=== PATIENT | male | born 1955 | race Caucasian/White ===

== ENCOUNTER 2016-08-20 18:01 | Emergency (ER) | payer OTHER ==
[~2016-08-20] VITALS: Ht 185.4 cm; Wt 90.7 kg
[~2016-08-20 18:01] MED LIST: AMLO10TA2 PO; CITA20TA5 PO; CYCL10TA2 PO; FLUO20CA8 PO; FLUO40CA9 PO; GABA-586 PO; HYDR25TA PO; IBUP-1027 PO; LISI10TA2 PO; MELA3TAB PO; NAPR500T3 PO; OMEP20CA9 PO; TRAM50TA PO; TRAZ150T55 PO
[2016-08-20 19:41] LABS: BASO % 1 % (0-3); EOS % 0 % (0-3); HEMOGLOBIN 12.6 g/dL (13.0-17.5); LYMPH # 2.2 x10^3/uL (1.0-4.8); LYMPH % 32 % (24-48); MEAN CORPUSCULAR HEMOGLOBIN 27 pg (25-35); MEAN CORPUSCULAR HGB CONC 32 g/dL (31-37); MEAN CORPUSCULAR VOLUME 83 fL (79-100); MONO % 9 % (0-9); NEUT % 58 % (31-73); PLATELET COUNT 276 x10^3/uL (140-400); RED CELL DISTRIBUTION WIDTH 15.6 % (11.5-14.5); WHITE BLOOD COUNT 6.8 x10^3/uL (4.0-11.0)
[2016-08-20 19:59] LABS: ALBUMIN 3.9 g/dL (3.4-5.0); ALBUMIN/GLOBULIN RATIO 1.1 (1.0-1.7); CALCIUM 8.7 mg/dL (8.5-10.1); CREATININE 1.1 mg/dL (0.7-1.3); GFR 68.3; TOTAL BILIRUBIN 0.3 mg/dL (0.2-1.0); TOTAL PROTEIN 7.6 g/dL (6.4-8.2)
[2016-08-20 20:28] LABS: BILIRUBIN,URINE NEGATIVE (NEG); GLUCOSE,URINE NEGATIVE (NEG); NITRITE,URINE NEGATIVE (NEG); UROBILINOGEN,URINE 0.2 mg/dL (0.2 mg/dL)
[2016-08-20 20:35] LABS: BARBITURATES NEG (NEG); BENZODIAZEPINES NEG (NEG); CANNABINOIDS NEG (NEG); COCAINE POS (NEG); METHADONE NEG (NEG); OPIATES NEG (NEG); PHENCYCLIDINE NEG (NEG)
[2016-08-20 20:36] LABS: BACTERIA,URINE 0 /HPF (0-FEW); PROTEIN,URINE 30 mg/dL (NEG-TRACE); RBC,URINE OCC /HPF (0-2); SQUAMOUS EPITHELIAL CELL,UR OCC /LPF; WBC,URINE OCC /HPF (0-4)
[2016-08-20 20:37] LABS: ETHANOL, URINE NEG (NEG)
[2016-08-20] MEDS ORDERED: POTASSIUM CHLORIDE 20 MEQ TABLET.ER. PO ONE (21:00)
[2016-08-20] MEDS ORDERED: POTASSIUM CHLORIDE 20 MEQ/15 ML ORAL LIQUID. PO ONE (21:00)
[2016-08-20 21:54] VITALS: BP 135/83
[2016-08-20] MEDS ORDERED: POTA20TA4 PO (22:22)
--- NOTE | 2016-08-21 00:48 | ED.ADGEN ---
Past Medical History Past Medical History: Bipolar, COPD, Depression, Hypertension Additional Past Medical Histor: BOARDERLINE PERSONALTIY DISORDER Past Surgical History: No Surgical History Alcohol Use: Occasionally Drug Use: Cocaine Adult General Chief Complaint Chief Complaint: PSYCH EVALUATION HPI HPI Patient is a 60 year old man, with history of bipolar disorder, depression, hypertension, COPD, continued tobacco abuse, who presents to the emergency department with a complaint of suicidal ideation. Patient states that he "would draw a warm bath, and get in the water", a plan to drown himself. He states that in the 80s attempted to slice his wrist using broken glass. He denies taking any medications or any other self injures behaviors prior to coming to the ED today. He states he been under a lot of stress lately, although he does not identify any specific inciting factors. Denies any auditory or visual hallucinations. He states he has been compliant with his medications. He is agreeable to an evaluation the ED, and discussion with the psychiatric evaluation team. He states he does have a mental health nurse case management and follows at the [facility]. Denies any chest pain, shortness breath, nausea, vomiting, any weakness emesis tingling or other concerning symptoms, no injuries, no exposures. Review of Systems Review of Systems Constitutional: Denies fever or chills. [] Eyes: Denies change in visual acuity. [] HENT: Denies nasal congestion or sore throat. [] Respiratory: Denies cough or shortness of breath. [] Cardiovascular: Denies chest pain or edema. [] GI: Denies abdominal pain, nausea, vomiting, bloody stools or diarrhea. [] : Denies dysuria. [] Musculoskeletal: Denies back pain or joint pain. [] Integument: Denies rash. [] Neurologic: Denies headache, focal weakness or sensory changes. [] Endocrine: Denies polyuria or polydipsia. [] Lymphatic: Denies swollen glands. [] Psychiatric: Depression and suicidal ideation. Current Medications Current Medications Current Medications Medications (Trade) Dose Ordered Sig/David Start Time Stop Time Status Last Admin Dose Admin Potassium Chloride (KCl Oral Soln) 40 meq 1X ONCE 08/20/16 21:00 08/20/16 21:01 DC 08/20/16 21:39 40 MEQ Potassium Chloride (Klor-Con) 40 meq 1X ONCE 08/20/16 21:00 1/3/17 21:01 DC 08/20/16 21:55 40 MEQ Allergies Allergies Allergies Coded Allergies Type Severity Reaction Last Updated Verified Penicillins Allergy Intermediate 08/17/16 Yes Physical Exam Physical Exam Constitutional: Well developed, well nourished, no acute distress, non-toxic appearance. [] HENT: Normocephalic, atraumatic, bilateral external ears normal, oropharynx moist, no oral exudates, nose normal. [] Eyes: PERRLA, EOMI, conjunctiva normal, no discharge. [] Neck: Normal range of motion, no tenderness, supple, no stridor. [] Cardiovascular:Heart rate regular rhythm, no murmur , S1, S2, rubs or gallops. [ ] Lungs & Thorax: Patient with coarse breath sounds and diminished breath sounds noted bilaterally, chronic changes, no significant wheezing, rhonchi or rales appreciated. No chest tenderness or crepitus. Abdomen: Bowel sounds normal, soft, no tenderness, no masses, no pulsatile masses. [] Skin: Warm, dry, no erythema, no rash. [] Back: No tenderness, no CVA tenderness. [] Extremities: No tenderness, no cyanosis, no clubbing, ROM intact, no edema. Negative Homans sign. [] Neurologic: Alert and oriented X 3, normal motor function, normal sensory function, no focal deficits noted. [] Psychologic: Affect normal, judgement normal, mood normal. [] Current Patient Data Vital Signs Vital Signs Date Time Temp Pulse Resp B/P Pulse Ox O2 Delivery O2 Flow Rate FiO2 08/20/16 21:54 84 20 135/83 92 Room Air 08/20/16 19:05 97.9 97.9 Lab Values Laboratory Tests Test 08/20/16 19:30 08/20/16 19:55 White Blood Count 6.8x10^3/uL (4.0-11.0) Red Blood Count 4.70x10^6/uL (4.30-5.70) Hemoglobin 12.6g/dL (13.0-17.5) L Hematocrit 39.0% (39.0-53.0) Mean Corpuscular Volume 83fL (79-100) Mean Corpuscular Hemoglobin 27pg (25-35) Mean Corpuscular Hemoglobin Concent 32g/dL (31-37) Red Cell Distribution Width 15.6% (11.5-14.5) H Platelet Count 276x10^3/uL (140-400) Neutrophils (%) (Auto) 58% (31-73) Lymphocytes (%) (Auto) 32% (24-48) Monocytes (%) (Auto) 9% (0-9) Eosinophils (%) (Auto) 0% (0-3) Basophils (%) (Auto) 1% (0-3) Neutrophils # (Auto) 3.9x10^3uL (1.8-7.7) Lymphocytes # (Auto) 2.2x10^3/uL (1.0-4.8) Monocytes # (Auto) 0.6x10^3/uL (0.0-1.1) Eosinophils # (Auto) 0.0x10^3/uL (0.0-0.7) Basophils # (Auto) 0.0x10^3/uL (0.0-0.2) Sodium Level 145mmol/L (136-145) Potassium Level 3.0mmol/L (3.5-5.1) L Chloride Level 105mmol/L (98-107) Carbon Dioxide Level 27mmol/L (21-32) Anion Gap 13 (6-14) Blood Urea Nitrogen 17mg/dL (8-26) Creatinine 1.1mg/dL (0.7-1.3) Estimated GFR (Cockcroft-Gault) 68.3 BUN/Creatinine Ratio 15 (6-20) Glucose Level 103mg/dL (70-99) H Calcium Level 8.7mg/dL (8.5-10.1) Total Bilirubin 0.3mg/dL (0.2-1.0) Aspartate Amino Transferase (AST) 25U/L (15-37) Alanine Aminotransferase (ALT) 31U/L (16-63) Alkaline Phosphatase 102U/L (46-116) Troponin I Quantitative 0.017ng/mL (0.000-0.055) Total Protein 7.6g/dL (6.4-8.2) Albumin 3.9g/dL (3.4-5.0) Albumin/Globulin Ratio 1.1 (1.0-1.7) Salicylates Level < 2.8mg/dL (2.8-20.0) L Salicylate Last Dose Date Salicylate Last Dose Time Acetaminophen Level < 2mcg/ml (10-30) L Acetaminophen Last Dose Date Acetaminophen Last Dose Time Urine Collection Type Unknown Urine Color Yellow Urine Clarity Clear Urine pH 7.0 Urine Specific Mulga 1.020 Urine Protein 30mg/dL (NEG-TRACE) Urine Glucose (UA) Negativemg/dL (NEG) Urine Ketones (Stick) Negativemg/dL (NEG) Urine Blood Negative (NEG) Urine Nitrite Negative (NEG) Urine Bilirubin Negative (NEG) Urine Urobilinogen Dipstick 0.2mg/dL (0.2 mg/dL) Urine Leukocyte Esterase Negative (NEG) Urine RBC Occ/HPF (0-2) Urine WBC Occ/HPF (0-4) Urine Squamous Epithelial Cells Occ/LPF Urine Bacteria 0/HPF (0-FEW) Urine Mucus Slight/LPF Urine Opiates Screen Neg (NEG) Urine Methadone Screen Neg (NEG) Urine Barbiturates Neg (NEG) Urine Phencyclidine Screen Neg (NEG) Urine Amphetamine/Methamphetamine Neg (NEG) Urine Benzodiazepines Screen Neg (NEG) Urine Cocaine Screen Pos (NEG) Urine Cannabinoids Screen Neg (NEG) Urine Ethyl Alcohol Neg (NEG) Laboratory Tests 08/20/16 19:30 Laboratory Tests 08/20/16 19:30 EKG EKG EC: Sinus rhythm, heart rate 81 beats/minute, QTC of 477, WV of 162, QRS of 106, upright axis, no ST elevations or depressions, no evidence of acute ST abnormalities. As interpreted by me. Radiology/Procedures Radiology/Procedures Not indicated. [] Course & Med Decision Making Course & Med Decision Making Pertinent Labs and Imaging studies reviewed. (See chart for details) Patient with no evidence of self injury behaviors, is awake alert and oriented in the ED, with persistent complaint of depression, and desire to drowned himself. Patient's laboratory studies reveal a hypokalemia with a potassium of 3.0, patient received oral repletion in the ED, which he tolerated without issue. Patient does take hydrochlorothiazide for blood pressure control, blood pressures are 140s over 80s in the ED and he is resting comfortably with a heart rate in the 70s to 80s. Oxygen saturation is 94% on room air, respiratory rate is 18-22 and unlabored. Patient's UDS was positive for cocaine, patient admits to using cocaine one day ago, states that he had not use in the past month. Patient's laboratory studies not reveal any other evidence of concerning findings. Patient is well-known to actually, PAT medical director/head team physician who evaluated the patient in the ED, after psychiatric evaluation performed, she recommends transfer to [facility] for observation. Patient is agreeable with this plan. Patient was given instructions regarding potassium diet, and was given a three-day supply of potassium repletion, instructed to follow-up with primary care provider for repeat potassium testing, he'll be able to obtain all the medications at the [facility] center, including his blood pressure medications. Patient transferred to [facility] via BLS ambulance without issue. Dragon Disclaimer Dragon Disclaimer This electronic medical record was generated, in whole or in part, using a voice recognition dictation system. Departure Impression: Primary Impression: Hypokalemia Additional Impressions: Suicidal ideation Cocaine abuse Disposition: 65 XFER TO PSYCH HOSP/UNIT Condition: IMPROVED Scripts Potassium Chloride (Klor-Con M20)20 Meq Tab.er.prt20 Meq PO DAILY #6 TAB.SR Prov:LYDIA RAMIREZ DO 08/20/16 Problem Qualifiers LYDIA RAMIREZ DO Aug 21, 2016 00:48
--- NOTE | 2016-08-21 06:49 | EKG ---
[facility] [address] [place] [address] Test Date: 2016-08-20 Test Time: 19:31:48 Pat Name: SURAJ MOSCOSO Department: Room: Gender: Ict Developer: : 1955 Requested By: LYDIA RAMIREZ Order Number: [id number] Reading MD: Measurements Intervals Dexter Rate: 81 P: 38 VT: 162 QRS: 23 QRSD: 106 T: 58 QT: 410 QTc: 477 Interpretive Statements SINUS RHYTHM PROLONGED QT NO SPECIFIC ECG ABNORMALITIES RI6.01 No previous ECG available for comparison
== END 2016-08-20 22:20 | disposition short-term general hospital (02) ==
LOC: ER 18:01
DX: E87.6 Hypokalemia (principal); R45.851 Suicidal ideations; F14.10 Cocaine abuse, uncomplicated; F31.9 Bipolar disorder, unspecified; I10 Essential (primary) hypertension; J44.9 Chronic obstructive pulmonary disease, unspecified; F17.200 Nicotine dependence, unspecified, uncomplicated; Z88.0 Allergy status to penicillin
CPT/HCPCS: 36415; 80053; 81001; 84484; 85027; 93005; 99285; G0481; G6038; 80196

== ENCOUNTER 2016-10-10 06:24 | Emergency (ER) | payer OTHER ==
[~2016-10-10] VITALS: Ht 185.4 cm; Wt 90.7 kg
[~2016-10-10 06:24] MED LIST changes: +POTA20TA4 PO
[2016-10-10 06:44] VITALS: BP 135/91
[2016-10-10] MEDS ORDERED: ACETAMINOPHEN 500 MG TABLET PO ONE (07:00)
--- NOTE | 2016-10-10 07:11 | ED.ADGEN ---
Past Medical History Past Medical History: Bipolar, COPD, Depression, Hypertension Additional Past Medical Histor: BOARDERLINE PERSONALTIY DISORDER Past Surgical History: No Surgical History Alcohol Use: Occasionally Drug Use: None, Cocaine Social History Narrative: no drugs since first of year Adult General Chief Complaint Chief Complaint: MECHANICAL FALL HPI HPI Patient is a 60 year old man, history of bipolar disorder, depression, alcohol abuse, who states that he slipped on the stairs after taking his sleeping pill last night, states that he struck his knee, landing his hand, denies striking his head or neck, denies a loss of consciousness. Eyes preceding symptoms, no chest pain, shortness breath, nausea or vomiting. At the time the patient applied a dressing to his knee where there is an abrasion, and went to bed. He presents because he is experiencing increasing swelling and pain in his right hand, with some pain in his knee, although he is ambulating without difficulty upon entering the emergency department. Denies any weakness numbness or tingling. Tetanus status is up-to-date. Denies any drugs, states he was raking some alcohol last night, he does drink alcohol daily, declined to give amount. Review of Systems Review of Systems Constitutional: Denies fever or chills. [] Eyes: Denies change in visual acuity. [] HENT: Denies nasal congestion or sore throat. [] Respiratory: Denies cough or shortness of breath. [] Cardiovascular: Denies chest pain or edema. [] GI: Denies abdominal pain, nausea, vomiting, bloody stools or diarrhea. [] : Denies dysuria. [] Musculoskeletal: Right knee pain, hand and wrist pain. Integument: Denies rash. [] Neurologic: Denies headache, focal weakness or sensory changes. [] Endocrine: Denies polyuria or polydipsia. [] Lymphatic: Denies swollen glands. [] Psychiatric: Denies depression or anxiety. [] Current Medications Current Medications Current Medications Medications (Trade) Dose Ordered Sig/David Start Time Stop Time Status Last Admin Dose Admin Acetaminophen (Tylenol) 1,000 mg 1X ONCE 10/10/16 07:00 10/10/16 07:01 DC 10/10/16 07:22 1,000 MG Allergies Allergies Allergies Coded Allergies Type Severity Reaction Last Updated Verified Penicillins Allergy Intermediate 08/17/16 Yes Physical Exam Physical Exam Constitutional: Well developed, well nourished, no acute distress, non-toxic appearance. [] HENT: Normocephalic, atraumatic, bilateral external ears normal, oropharynx moist, no oral exudates, nose normal. [] Eyes: PERRLA, EOMI, conjunctiva normal, no discharge. [] Neck: Normal range of motion, no tenderness, supple, no stridor. [] Cardiovascular:Heart rate regular rhythm, no murmur, S1, S2, no rubs or gallops. [] Lungs & Thorax: Diminished breath sounds at bases bilaterally, no wheezing, rhonchi, rales. No chest wall tenderness or crepitus. [] Abdomen: Bowel sounds normal, soft, no tenderness, no masses, no pulsatile masses. [] Skin: Warm, dry, no erythema, no rash. [] Back: No tenderness, no CVA tenderness. [] Extremities: Patient with mild swelling noted both on the palmar and dorsal aspect of his hand, with ecchymosis noted in the middle of his on, states he is unable to fully close the hand secondary to pain, tenderness to palpation throughout the palm and the PIP joints, no cyanosis, no clubbing, full range of motion all extremities except for the right hand as stated, patient with abrasion noted to the lateral aspect of his right knee, full flexion and extension, mild tenderness palpation diffusely across the knee, no effusion, no crepitus, no deformity identified, no edema. [] Neurologic: Alert and oriented X 3, normal motor function, normal sensory function, no focal deficits noted. [] Psychologic: Affect normal, judgement normal, mood normal. [] Current Patient Data Vital Signs Vital Signs Date Time Temp Pulse Resp B/P Pulse Ox O2 Delivery O2 Flow Rate FiO2 10/10/16 06:44 98.1 97 16 135/91 99 Room Air 98.1 EKG EKG ECG: Sinus rhythm, heart rate 90 bpm, sinus rhythm, no ectopy. As interpreted by me. Radiology/Procedures Radiology/Procedures [] [facility] [address] [place] [address] IMAGING REPORT Signed PATIENT: SURAJ MOSCOOS ACCOUNT: [id number] : 1955 LOCATION: ER AGE: 60 SEX: M EXAM [id number] STATUS: REG ER ORD. PHYSICIAN: LYDIA RAMIREZ DO REASON: contusion/fall PROCEDURE: HAND RIGHT 3V; WRIST 3V RIGHT EXAM: 1. Right hand 3 views. 2. Right wrist 3 views. HISTORY: Fall with right hand and wrist pain. COMPARISON: None. FINDINGS: No fractures are appreciated at the right wrist. There is a degenerative cyst within the distal scaphoid. Joint spaces and alignment are maintained. There is a chronic healed fracture of the right fifth metacarpal. No acute fractures are seen in the hand. There is mild distal interphalangeal osteoarthritis along the second through fifth rays. Alignment is maintained. IMPRESSION: 1. No acute fracture. DICTATED and SIGNED BY: LACIE PETERS MD DATE: 10/10/16721 CC: LINA ARCHULETA MD; LYDIA RAMIREZ DO ~ Course & Med Decision Making Course & Med Decision Making Pertinent Labs and Imaging studies reviewed. (See chart for details) Patient with abrasion noted on the lateral aspect of the right knee, but full range of motion in the knee with no bony point tenderness or significant swelling. Patient repetitively denied striking his head, any neurologic complaints, or indications for imaging of the head or neck. States this occurred more than 8-10 hours ago, last night shortly after taking his sleeping pill last night. Due to initial concerns, x-ray ordered, patient then declined x -ray when x-ray it help desk technician came to taken to x-ray. Patient's wrist it as a full range of motion with complaints of pain with motion, noted to have swelling in the hand itself with tenderness, and bruising in the palmar aspect. No bony deformities or bony point tenderness identified, x-ray does not reveal any evidence of fracture, patient has no pain with axial loading. I did discuss findings of the patient, he is received Tylenol in the ED, and has increased improve range of motion with elevation of his hand in the emergency department, he has seen Dr. Davis from orthopedics previously. Cuco wrap applied for patient's comfort, we discussed concerning symptoms that prompt return or follow -up with orthopedics, patient discharged home in stable condition with prescription for naproxen, and precautions as stated. Dragon Disclaimer Dragon Disclaimer This electronic medical record was generated, in whole or in part, using a voice recognition dictation system. Departure Impression: Primary Impression: Hand contusion Disposition: 01 HOME, SELF-CARE Condition: IMPROVED Scripts Naproxen 250 Mg [id number] Mg PO BID PRN PAIN #10 Prov:LYDIA RAMIREZ DO 10/10/16 Problem Qualifiers Primary Impression: Hand contusion Encounter type: initial encounter Laterality: right Qualified Code: S60.221A - Contusion of right hand, initial encounter LYDIA RAMIREZ DO Oct 10, 2016 07:11
--- NOTE | 2016-10-10 07:26 | RAD ---
EXAM: 1. Right hand 3 views. 2. Right wrist 3 views. HISTORY: Fall with right hand and wrist pain. COMPARISON: None. FINDINGS: No fractures are appreciated at the right wrist. There is a degenerative cyst within the distal scaphoid. Joint spaces and alignment are maintained. There is a chronic healed fracture of the right fifth metacarpal. No acute fractures are seen in the hand. There is mild distal interphalangeal osteoarthritis along the second through fifth rays. Alignment is maintained. IMPRESSION: 1. No acute fracture.
[2016-10-10] MEDS ORDERED: NAPR250T2 PO (08:01)
== END 2016-10-10 08:03 | disposition home or self-care (01) ==
LOC: ER 06:24
DX: S60.221A Contusion of right hand, initial encounter (principal); S80.211A Abrasion, right knee, initial encounter; F14.10 Cocaine abuse, uncomplicated; F31.9 Bipolar disorder, unspecified; I10 Essential (primary) hypertension; J44.9 Chronic obstructive pulmonary disease, unspecified; Z88.0 Allergy status to penicillin; W10.8XXA Fall (on) (from) other stairs and steps, initial encounter; Y93.89 Activity, other specified; Y92.89 Other specified places as the place of occurrence of the external cause; Y99.8 Other external cause status
CPT/HCPCS: 73110; 73130; 99284-25

== ENCOUNTER 2016-10-28 15:40 | Emergency (ER) | payer OTHER ==
[~2016-10-28] VITALS: Ht 185.4 cm; Wt 97.5 kg
[~2016-10-28 15:40] MED LIST changes: +NAPR250T2 PO
[2016-10-28 16:06] VITALS: BP 129/80
--- NOTE | 2016-10-28 16:50 | PHYS DOC ---
Past Medical History Past Medical History: Bipolar, COPD, Depression, Hypertension Additional Past Medical Histor: BOARDERLINE PERSONALTIY DISORDER Past Surgical History: No Surgical History Additional Information: 2 PACKS/WEEK Alcohol Use: Occasionally Additional Information: "I DRINK ONCE A MONTH" Drug Use: None Social History Narrative: QUIT SMOKING CRACK THE FIRST OF THE YEAR Adult General Chief Complaint Chief Complaint: HAND PROBLEM HPI HPI Patient is a 60 year old female presents emergency department stating that he is having right hand pain and discomfort. He states that he is still having swelling. Patient was seen here approximately 2 weeks ago for right hand pain after falling while intoxicated. X-rays of the hand and wrist were negative. Patient states he has a follow-up appointment with Dr. Davis tomorrow. Patient was prescribed 120 tramadol's on October 10. Patient states that he has lost his prescription. Had been placed on naproxen when he was seen here in the emergency department. Patient states he is out of the medication. Review of Systems Review of Systems Constitutional: Denies fever or chills [] Eyes: Denies change in visual acuity, redness, or eye pain [] HENT: Denies nasal congestion or sore throat [] Respiratory: Denies cough or shortness of breath [] Cardiovascular: No additional information not addressed in HPI [] GI: Denies abdominal pain, nausea, vomiting, bloody stools or diarrhea [] : Denies dysuria or hematuria [] Musculoskeletal: Denies back pain. Right hand and wrist pain with swelling Integument: Denies rash or skin lesions [] Neurologic: Denies headache, focal weakness or sensory changes [] Allergies Allergies Allergies Coded Allergies Type Severity Reaction Last Updated Verified Penicillins Allergy Intermediate 08/17/16 Yes Physical Exam Physical Exam Constitutional: Well developed, well nourished, no acute distress, non-toxic appearance. [] HENT: Normocephalic, atraumatic, bilateral external ears normal, oropharynx moist, no oral exudates, nose normal. [] Eyes: PERRLA, EOMI, conjunctiva normal, no discharge. [] Neck: Normal range of motion, no tenderness, supple, no stridor. [] Cardiovascular:Heart rate regular rhythm, no murmur [] Lungs & Thorax: Bilateral breath sounds clear to auscultation [] Skin: Warm, dry, no erythema, no rash. [] Back: No tenderness Extremities: right 3rd metacarpal tenderness, no cyanosis, no clubbing, ROM intact, no edema. Swelling noted of the hand. Patient with good sensation noted. cap refill brisk < 2 seconds. Neurologic: Alert and oriented X 3, normal motor function, normal sensory function, no focal deficits noted. [] Psychologic: Affect normal, judgement normal, mood normal. [] Current Patient Data Vital Signs Vital Signs Date Time Temp Pulse Resp B/P Pulse Ox O2 Delivery O2 Flow Rate FiO2 10/28/16 16:06 98.3 98 20 94 Room Air 98.3 EKG EKG [] Radiology/Procedures Radiology/Procedures [] Course & Med Decision Making Course & Med Decision Making Pertinent Labs and Imaging studies reviewed. (See chart for details) Patient will be placed in a splint with recommendations to keep it clean and dry. Patient left the emergency department prior to having discharge truck shins as well as having the splint. Been provided with verbal information. He did not receive his prescription for naproxen. Ice packs and elevation as much as possible. He'll be provided with the naproxen prescription. Recommended patient following up with his orthopedic as he states he has a appointment scheduled. Signs symptoms to return back to emergency department as been provided. Patient agrees with discharge instructions treatment regimens and follow-up recommendations. [] Dragon Disclaimer Dragon Disclaimer This electronic medical record was generated, in whole or in part, using a voice recognition dictation system. Departure Departure Impression: Primary Impression: Hand contusion Disposition: 01 HOME, SELF-CARE Condition: STABLE Referrals: LINA ARCHULETA MD (PCP) OLI DAVIS MD Patient Instructions: Hand Contusion, [id number] Additional Instructions: Activity as tolerated Medication as prescribed Ice packs on 20 minutes and off 20 minutes several times a day Elevation as much as possible Keep the splint in place and dry. Do not remove the splint Keep your followup appointment with Dr Davis as you state you have an appointment Return to emergency department as needed for signs and symptoms that become worse. MARIXA MARTINEZ NP Oct 28, 2016 16:50
== END 2016-10-28 17:05 | disposition home or self-care (01) ==
LOC: ER 15:40
DX: S60.221A Contusion of right hand, initial encounter (principal); J44.9 Chronic obstructive pulmonary disease, unspecified; I10 Essential (primary) hypertension; F31.9 Bipolar disorder, unspecified; F17.210 Nicotine dependence, cigarettes, uncomplicated; Z88.0 Allergy status to penicillin; W18.39XA Other fall on same level, initial encounter; Y93.89 Activity, other specified; Y92.89 Other specified places as the place of occurrence of the external cause; Y99.8 Other external cause status
CPT/HCPCS: 99281

== ENCOUNTER 2017-04-09 08:03 | Emergency (ER) | payer OTHER ==
[~2017-04-09 08:03] MED LIST changes: -MELA3TAB PO; +MELA3TAB2 PO; +TRAZ150T49 PO; -TRAZ150T55 PO
[2017-04-09 08:11] VITALS: BP 153/94
--- NOTE | 2017-04-09 08:35 | PHYS DOC ---
Past Medical History Past Medical History: Bipolar, COPD, Depression, Hypertension Additional Past Medical Histor: BOARDERLINE PERSONALTIY DISORDER Past Surgical History: No Surgical History Additional Information: 1/2 PACK A DAY Alcohol Use: Occasionally Additional Information: "I DRINK ONCE A MONTH" Drug Use: None Adult General Chief Complaint Chief Complaint: LACERATION/AVULSION HPI HPI Patient is a 61 year old male presents to the emergency department with a history of drinking alcohol last night. Patient states, "someone moved the floor on me and tripped and fell." Patient states he has a laceration to the upper left eyebrow area. Patient is unsure of last tetanus immunization. Patient denies neck pain or any further pain and discomfort. Patient is unsure if he LOC he is unsure when the incident occurred. Patient denies numbness or tingling to the lower extremities. Review of Systems Review of Systems Constitutional: Denies fever or chills [] Eyes: Denies change in visual acuity, redness, or eye pain [] HENT: Denies nasal congestion or sore throat [] Respiratory: Denies cough or shortness of breath [] Cardiovascular: No additional information not addressed in HPI [] GI: Denies abdominal pain, nausea, vomiting, bloody stools or diarrhea [] : Denies dysuria or hematuria [] Musculoskeletal: Denies back pain or joint pain [] Integument: Denies rash or skin lesions. Laceration to left eyebrow Neurologic: Denies headache, focal weakness or sensory changes [] Endocrine: Denies polyuria or polydipsia [] Current Medications Current Medications Current Medications Medications (Trade) Dose Ordered Sig/David Start Time Stop Time Status Last Admin Dose Admin Diphtheria/ Tetanus/Acell Pertussis (Boostrix) 0.5 ml ONCE ONCE 04/09/17 08:30 04/09/17 08:31 DC 04/09/17 08:49 0.5 ML Lidocaine/Sodium Bicarbonate (Buffered Lidocaine 1%) 20 ml 1X ONCE 04/09/17 08:30 04/09/17 08:31 DC 04/09/17 08:50 20 ML Allergies Allergies Allergies Coded Allergies Type Severity Reaction Last Updated Verified Penicillins Allergy Intermediate 08/17/16 Yes Physical Exam Physical Exam Constitutional: Well developed, well nourished, no acute distress, non-toxic appearance. [] HENT: Normocephalic, atraumatic, bilateral external ears normal, oropharynx moist, no oral exudates, nose normal. Bilateral TM normal Eyes: PERRLA, EOMI, conjunctiva normal, no discharge. [] Neck: Normal range of motion, no tenderness, supple, no stridor. [] Cardiovascular:Heart rate regular rhythm, no murmur [] Lungs & Thorax: Bilateral breath sounds clear to auscultation [] Skin: Warm, dry, no erythema, no rash. Patient with 2 cm laceration to the left eye brow, abrasion to the left cheek. Back: No cervical spine, thoracic spine, lumbar spine tenderness, no step-offs, no crepitus, no deformity noted. No CVA tenderness. [] Extremities: No tenderness, no cyanosis, no clubbing, ROM intact, no edema. Patient able to ambulate with no abnormality. Neurologic: Alert and oriented X 3, normal motor function, normal sensory function, no focal deficits noted. [] Psychologic: Affect normal, judgement normal, mood normal. [] Current Patient Data Vital Signs Vital Signs Date Time Temp Pulse Resp B/P (MAP) Pulse Ox O2 Delivery O2 Flow Rate FiO2 04/09/17 08:11 98.5 109 16 153/94 (113) 90 Room Air 98.5 EKG EKG [] Radiology/Procedures Radiology/Procedures [] Course & Med Decision Making Course & Med Decision Making Pertinent Labs and Imaging studies reviewed. (See chart for details) Pertinent Labs and Imaging studies reviewed. (See chart for details) Patient was provided with signs and symptoms of infection. Commended patient keep the area clean and dry. Clean the site twice a day with soap and water and apply antibiotic ointment. Patient was encouraged to use Tylenol or ibuprofen for pain and discomfort. Patient will be placed on Bactrim for the next 5 days as a preventative for infection. Patient agrees with discharge instructions treatment regimens and follow-up recommendations. Patient was encouraged to follow up as needed. Patient will be discharged home in stable condition. All questions and concerns answered at patient's bedside. CT scan negative for maxillofacial area, head and c-spine. [] Dragon Disclaimer Dragon Disclaimer This electronic medical record was generated, in whole or in part, using a voice recognition dictation system. Departure Departure Impression: Primary Impression: Alcohol abuse Additional Impression: Facial laceration Disposition: 01 HOME, SELF-CARE Condition: STABLE Referrals: LINA ARCHULETA MD (PCP) Patient Instructions: Alcohol and Drug Addiction, Finding Treatment, Facial Laceration, [id number] Additional Instructions: Your CT scans of your head neck and maxillofacial's were negative for any fractures or abnormalities. Keep your sutures clean and dry. Clean the sites twice day with soap and water and apply antibiotic ointment to the area twice a day. Medication as prescribed. Watch for signs and symptoms of infection such as redness warmth tenderness or any yellow/greenish drainage that may come from the site if this should occur follow-up to primary care physician immediately. Sutures out in the next 5-7 days. Return back to emergency prior signs symptoms of become worse. Follow-up to primary care physician in the next 5-7 days. Scripts Sulfamethoxazole/Trimethoprim (BACTRIM DS TABLET) 1 Each Tablet 1 TAB PO BID, #10 TAB Prov: MARIXA MARTINEZ APRN 04/09/17 Laceration/Wound Repair Laceration/Wound Repair : Wound Location: face Wound's Depth, Shape: superficial Wound Length (cm): 2 Wound Explored: clean Irrigated w/ Saline (ccs): 30 Anesthesia: 1% Lidocaine Volume Anesthetic (ccs): 4 Wound Debrided: minimal Wound Repaired With: sutures Suture Size/Type: 5:0 Number of Sutures: 4 Progress Site was injected with 4 ml of 1% buffered lidocaine. cleaned with betadine and irrigated with 30 ml NS, 4 interrupted sutures of 5-[address] in the area. Patient with splinter to the inner right foot area cleaned with betadine, splinter removed with needle, area clean with NS. Problem Qualifiers Additional Impression: Facial laceration Encounter type: initial encounter Qualified Codes: S01.81XA - Laceration without foreign body of other part of head, initial encounter MARIXA MARTINEZ APRN Apr 09, 2017 08:35
[2017-04-09] MEDS: DIPHTH,PERTUSS(ACELL),TET TOX 0.5 ML DISP.SYRIN. VAX IM ONE (08:49)
[2017-04-09] MEDS: LIDOCAINE 1% / SOD BICARB 8.4% 20 ML VIAL. IJ ONE (08:50)
--- NOTE | 2017-04-09 09:04 | RAD ---
CT of the head without contrast, 04/09/2017: History: Fall, injury Comparison is made to a study from 03/21/2013. There is mild cerebral atrophy. There are mild patchy lucencies in the deep white matter bilaterally compatible with chronic ischemic change. The ventricles are within normal limits in size. There is no shift of the midline structures. There is no evidence of acute intracranial hemorrhage or mass effect. IMPRESSION: 1. Mild deep white matter lucencies compatible with chronic ischemic change. 2. No acute intracranial abnormality is detected. CT of the cervical spine without contrast, 04/09/2017: Noncontrast scans were obtained with multiplanar reconstructions produced. There is disc space narrowing and marginal spurring at multiple levels in the mid and lower cervical spine. There are mild to moderate degenerative changes involving scattered facet joints, more so on the upper left. No acute fracture or dislocation is identified. The degenerative changes are causing borderline narrowing of the central spinal canal at several levels as well as mild foraminal encroachment at C6-7 and C5-6. There is mild calcific plaquing at the carotid bifurcations. IMPRESSION: 1. Moderate multilevel degenerative change. 2. No acute bony abnormality is detected. PQRS Compliance Statement: One or more of the following individualized dose reduction techniques were utilized for this examination: 1. Automated exposure control 2. Adjustment of the mA and/or kV according to patient size 3. Use of iterative reconstruction technique
--- NOTE | 2017-04-09 09:06 | RAD ---
Maxillofacial CT without IV contrast Indication: Head injury and left eye injury status post fall. Bruising to cheek and around the eye. Technique: Maxillofacial CT without IV contrast with multiplanar reformats. Comparison: None Findings: Lucency is noted through the right coronoid process of the mandible which may suggest nondisplaced fracture, age indeterminate. No surrounding edema. Also linear lucency seen through the distal aspect of the left lateral pterygoid plate. No other fractures of the facial bones or mandible. Temporomandibular joints are in normal anatomic alignment. The orbits are within normal limits. Soft tissue swelling is noted overlying left maxillary sinus and zygoma without evidence of underlying fractures. There is mild right deviation of the nasal septum. There is mild mucoperiosteal thickening of the anterior ethmoid air cells and moderate mucoperiosteal thickening of the left maxillary sinus. The sphenoid sinuses, frontal sinuses and mastoid air cells are clear. The noncontrast appearance of the nasopharynx and oropharynx is within normal limits. Impacted right lower third molar. The submandibular glands and parotid glands are within normal limits. Impression: 1. Soft tissue swelling overlying left maxilla and zygoma without underlying fractures. 2. Punctate well-corticated bony fragment adjacent to the right coronoid process of the mandible, nonspecific may represent a nondisplaced avulsion fracture, age indeterminate. No surrounding inflammatory changes to suggest acute fracture. 3. Lucency seen through the distal left lateral pterygoid plate, nonspecific may represent nondisplaced fracture. No surrounding inflammatory changes. 4. Significant left maxillary sinus disease. PQRS Compliance Statement: One or more of the following individualized dose reduction techniques were utilized for this examination: 1. Automated exposure control 2. Adjustment of the mA and/or kV according to patient size 3. Use of iterative reconstruction technique
[2017-04-09] MEDS ORDERED: SULF1TAB24 PO (09:28)
== END 2017-04-09 09:56 | disposition home or self-care (01) ==
LOC: ER 08:03
DX: S01.112A Laceration without foreign body of left eyelid and periocular area, initial encounter (principal); F10.10 Alcohol abuse, uncomplicated; I10 Essential (primary) hypertension; J44.9 Chronic obstructive pulmonary disease, unspecified; F31.9 Bipolar disorder, unspecified; F17.200 Nicotine dependence, unspecified, uncomplicated; Z88.0 Allergy status to penicillin; W03.XXXA Other fall on same level due to collision with another person, initial encounter; Y93.89 Activity, other specified; Y99.8 Other external cause status; Y92.89 Other specified places as the place of occurrence of the external cause
CPT/HCPCS: 12011; 70450; 70486; 72125; 90471; 90715; 99284-25

== ENCOUNTER 2017-04-21 21:53 | Emergency (ER) | payer OTHER ==
[~2017-04-21] VITALS: Ht 185.4 cm; Wt 97.5 kg
[~2017-04-21 21:53] MED LIST changes: +SULF1TAB24 PO
[2017-04-21 22:31] VITALS: BP 148/75
[2017-04-21] MEDS ORDERED: FLUORESCEIN OPHTH TEST STRIP. OD ONE (23:30)
[2017-04-21] MEDS ORDERED: TETRACAINE 0.5% OPHTH SOLUTION 4ML BOTTLE. OD ONE (23:30)
--- NOTE | 2017-04-22 06:08 | PHYS DOC ---
Past Medical History Past Medical History: Bipolar, COPD, Depression, Hypertension Additional Past Medical Histor: BOARDERLINE PERSONALTIY DISORDER, SHOULDER PAIN Past Surgical History: No Surgical History Alcohol Use: Occasionally Drug Use: Other Social History Narrative: CRACK Adult General Chief Complaint Chief Complaint: EYE PROBLEMS HPI HPI Patient is a 61 year old male who presents with right eye irritation and request for suture removal. Patient had sutures placed on 04/09 to left eyebrow, requesting removal. Denies fevers or chills, erythema/warmth/swelling, purulent drainage. States he was painting all day today and thinks that he got paint into his right eye. He has itching, clear drainage, pain. Did not irrigate his eyes prior to arrival. He wears glasses but not contacts. Review of Systems Review of Systems Constitutional: Denies fever Eyes: Reports eye problem Respiratory: Denies cough or shortness of breath Cardiovascular: Denies chest pain GI: Denies abdominal pain, nausea, vomiting Musculoskeletal: Denies back pain or joint pain Integument: Requests suture removal Neurologic: Denies headache Current Medications Current Medications Current Medications Medications (Trade) Dose Ordered Sig/David Start Time Stop Time Status Last Admin Dose Admin Fluorescein Sodium (Ful-Radha) 1 strip 1X ONCE 04/21/17 23:30 04/21/17 23:31 DC Tetracaine HCl (Tetracaine) 1 drop 1X ONCE 04/21/17 23:30 04/21/17 23:31 DC Allergies Allergies Allergies Coded Allergies Type Severity Reaction Last Updated Verified Penicillins Allergy Intermediate 08/17/16 Yes Physical Exam Physical Exam Constitutional: Well developed, well nourished, no acute distress, non-toxic appearance. HENT: Normocephalic, atraumatic, bilateral external ears normal, oropharynx moist, nose normal. intact sutures over the left eyebrow, wound appears well healed without erythema/warmth/swelling, no purulent drainage. Eyes: PERRLA, EOMI, right conjunctival injection. Cardiovascular: no edema. Lungs & Thorax: no respiratory distress. Abdomen: nondistended. Skin: Warm, dry, no erythema, no rash. Extremities: no deformity Neurologic: Alert and oriented X 3 Current Patient Data Vital Signs Vital Signs Date Time Temp Pulse Resp B/P (MAP) Pulse Ox O2 Delivery O2 Flow Rate FiO2 04/21/17 22:31 98.0 90 18 96 Room Air 98.0 EKG EKG [] Radiology/Procedures Radiology/Procedures [] Course & Med Decision Making Course & Med Decision Making Pertinent Labs and Imaging studies reviewed. (See chart for details) The patient presents with eye irritation and requesting suture removal. Ordered visual acuities, eye irrigation, planned to evaluate for corneal abrasion. Requested RN to remove sutures. The patient eloped from the department after I evaluated him. I was not able to give discharge instructions or any other instructions. He was stable at the time of my initial evaluation. [] Dragon Disclaimer Dragon Disclaimer This electronic medical record was generated, in whole or in part, using a voice recognition dictation system. Departure Departure Impression: Primary Impression: Chemical conjunctivitis of right eye Disposition: 01 HOME, SELF-CARE Condition: STABLE Referrals: LINA ARCHULETA MD (PCP) RYAN SANTOYO MD Apr 22, 2017 06:08
== END 2017-04-21 23:55 | disposition left against medical advice (07) ==
LOC: ER 21:53
DX: H10.211 Acute toxic conjunctivitis, right eye (principal); I10 Essential (primary) hypertension; J44.9 Chronic obstructive pulmonary disease, unspecified; Z88.0 Allergy status to penicillin
CPT/HCPCS: 99281

== ENCOUNTER 2017-04-28 08:57 | Emergency (ER) | payer OTHER ==
[~2017-04-28] VITALS: Ht 185.4 cm; Wt 94.1 kg
[~2017-04-28 08:57] MED LIST changes: -NAPR250T2 PO; +NAPR250T6 PO
[2017-04-28 09:05] VITALS: BP 142/95
--- NOTE | 2017-04-28 09:11 | PHYS DOC ---
Past Medical History Past Medical History: Bipolar, COPD, Depression, Hypertension Additional Past Medical Histor: BOARDERLINE PERSONALTIY DISORDER, SHOULDER PAIN Past Surgical History: No Surgical History Alcohol Use: Occasionally Drug Use: Other Adult General Chief Complaint Chief Complaint: SUTURE/STAPLE REMOVAL HPI HPI Patient is a 61 year old male who presents with request to have left eyebrow sutures removed, placed approximately 2 weeks ago, no complications, reports tetanus is UTD. Review of Systems Review of Systems Negative Allergies Allergies Allergies Coded Allergies Type Severity Reaction Last Updated Verified Penicillins Allergy Intermediate 08/17/16 Yes Physical Exam Physical Exam Constitutional: Well developed, well nourished, no acute distress, non-toxic appearance. [] HENT: Normocephalic, well healed left eyebrow laceration EKG EKG [] Radiology/Procedures Radiology/Procedures [] Course & Med Decision Making Course & Med Decision Making Pertinent Labs and Imaging studies reviewed. (See chart for details) reviewed prior record. Came on 04/22 and requested suture removal, left during treatment. Stated today it was because he was "impatient". Sutures removed without difficulty. Dragon Disclaimer Dragon Disclaimer This electronic medical record was generated, in whole or in part, using a voice recognition dictation system. Departure Departure Impression: Primary Impression: Visit for suture removal Disposition: HOME, SELF-CARE Condition: GOOD Patient Instructions: Suture Removal-Brief DARVIN TRACY MD Apr 28, 2017 09:11
== END 2017-04-28 09:13 | disposition home or self-care (01) ==
LOC: ER 08:57
DX: S01.112D Laceration without foreign body of left eyelid and periocular area, subsequent encounter (principal); I10 Essential (primary) hypertension; J44.9 Chronic obstructive pulmonary disease, unspecified; F31.9 Bipolar disorder, unspecified; Z88.0 Allergy status to penicillin; X58.XXXD Exposure to other specified factors, subsequent encounter; Y99.8 Other external cause status; Y92.89 Other specified places as the place of occurrence of the external cause
CPT/HCPCS: 99281

== ENCOUNTER 2017-07-09 14:10 | Emergency (ER) | payer OTHER ==
[~2017-07-09] VITALS: Ht 185.4 cm; Wt 96.6 kg
[~2017-07-09 14:10] MED LIST changes: -NAPR500T3 PO; +NAPR500T4 PO
[2017-07-09 14:24] VITALS: BP 128/88
[2017-07-09 14:57] LABS: POTASSIUM ISTAT 3.1 mmol/L (3.5-5.0)
[2017-07-09] MEDS ORDERED: IOHEXOL 300 MG/ML 100ML VIAL. IV ONE (15:00)
[2017-07-09] MEDS ORDERED: CONTRAST GIVEN MC PRN (15:00)
[2017-07-09 15:01] LABS: BASO # 0.1 x10^3/uL (0.0-0.2); BASO % 1 % (0-3); EOS % 4 % (0-3); HEMATOCRIT 37.8 % (39.0-53.0); HEMOGLOBIN 12.2 g/dL (13.0-17.5); LYMPH # 2.3 x10^3/uL (1.0-4.8); LYMPH % 30 % (24-48); MEAN CORPUSCULAR HEMOGLOBIN 28 pg (25-35); MEAN CORPUSCULAR HGB CONC 32 g/dL (31-37); MEAN CORPUSCULAR VOLUME 85 fL (79-100); MONO % 8 % (0-9); NEUT % 57 % (31-73); PLATELET COUNT 329 x10^3/uL (140-400); RED BLOOD COUNT 4.43 x10^6/uL (4.30-5.70); RED CELL DISTRIBUTION WIDTH 15.3 % (11.5-14.5); WHITE BLOOD COUNT 7.6 x10^3/uL (4.0-11.0)
[2017-07-09] MEDS ORDERED: POTASSIUM CHLORIDE 20 MEQ TABLET.ER. PO ONE (15:15)
[2017-07-09] MEDS ORDERED: TRAM50TA PO (16:07)
--- NOTE | 2017-07-09 16:08 | PHYS DOC ---
Past Medical History Past Medical History: Bipolar, COPD, Depression, Hypertension Additional Past Medical Histor: BOARDERLINE PERSONALTIY DISORDER, SHOULDER PAIN Past Surgical History: No Surgical History Alcohol Use: Occasionally Drug Use: Other Adult General Chief Complaint Chief Complaint: GROIN PAIN [place] [employer] HPI Patient is a 61 year old male presenting to the emergency department for evaluation of right lower abdominal pain that has been going on for the past several days but is worse today. He says that he feels that he is swollen in his lower abdomen and that he gets worse when he is standing up or coughing and this is when he feels the most pain. Says that when he is laying on the bed he does not have that much pain but if he moves his leg or twists his torso that reproduces the pain. Denies any fevers chills nausea vomiting diarrhea constipation or systemic symptoms. Denies any prior abdominal surgery. He says that he is almost out of his tramadol and he is concerned he will not be able to make it through the iday weekend. Review of Systems Review of Systems Constitutional: Denies fever or chills [] Eyes: Denies change in visual acuity, redness, or eye pain [] HENT: Denies nasal congestion or sore throat [] Respiratory: Denies cough or shortness of breath [] Cardiovascular: No additional information not addressed in HPI [] GI: + abdominal pain. No nausea, vomiting, bloody stools or diarrhea [] : Denies dysuria or hematuria [] Musculoskeletal: Denies back pain or joint pain [] Integument: Denies rash or skin lesions [] Neurologic: Denies headache, focal weakness or sensory changes [] Current Medications Current Medications Current Medications Medications (Trade) Dose Ordered Sig/David Start Time Stop Time Status Last Admin Dose Admin Info (Do NOT chart on this entry -- for MONITORING) 1 each PRN DAILY PRN 07/09/17 15:00 07/11/17 14:59 Iohexol (Omnipaque 300 Mg/ml) 75 ml 1X ONCE 07/09/17 15:00 07/09/17 15:01 DC 07/09/17 15:42 75 ML Potassium Chloride (Klor-Con) 40 meq 1X ONCE 07/09/17 15:15 07/09/17 15:16 DC Allergies Allergies Allergies Coded Allergies Type Severity Reaction Last Updated Verified Penicillins Allergy Intermediate 08/17/16 Yes Physical Exam Physical Exam Constitutional: Well developed, well nourished, no acute distress, non-toxic appearance. [] HENT: Normocephalic, atraumatic, bilateral external ears normal, oropharynx moist, no oral exudates, nose normal. [] Eyes: PERRLA, EOMI, conjunctiva normal, no discharge. [] Neck: Normal range of motion, no tenderness, supple, no stridor. [] Cardiovascular:Heart rate regular rhythm, no murmur [] Lungs & Thorax: Bilateral breath sounds clear to auscultation [] Abdomen: Bowel sounds normal, soft, tenderness to palpation in the right lower quadrant with an obvious hernia on palpation that I am able to reduce without any difficulty, no pulsatile masses. [] Skin: Warm, dry, no erythema, no rash. [] Back: No tenderness, no CVA tenderness. [] Extremities: No tenderness, no cyanosis, no clubbing, ROM intact, no edema. [] Neurologic: Alert and oriented X 3, normal motor function, normal sensory function, no focal deficits noted. [] Current Patient Data Vital Signs Vital Signs Date Time Temp Pulse Resp B/P (MAP) Pulse Ox O2 Delivery O2 Flow Rate FiO2 07/09/17 14:24 97.5 95 20 128/88 (101) 94 Room Air 97.5 Lab Values Laboratory Tests Test 07/09/17 14:30 07/09/17 14:49 White Blood Count 7.6 x10^3/uL (4.0-11.0) Red Blood Count 4.43 x10^6/uL (4.30-5.70) Hemoglobin 12.2 g/dL (13.0-17.5) L Hematocrit 37.8 % (39.0-53.0) L Mean Corpuscular Volume 85 fL (79-100) Mean Corpuscular Hemoglobin 28 pg (25-35) Mean Corpuscular Hemoglobin Concent 32 g/dL (31-37) Red Cell Distribution Width 15.3 % (11.5-14.5) H Platelet Count 329 x10^3/uL (140-400) Neutrophils (%) (Auto) 57 % (31-73) Lymphocytes (%) (Auto) 30 % (24-48) Monocytes (%) (Auto) 8 % (0-9) Eosinophils (%) (Auto) 4 % (0-3) H Basophils (%) (Auto) 1 % (0-3) Neutrophils # (Auto) 4.3 x10^3uL (1.8-7.7) Lymphocytes # (Auto) 2.3 x10^3/uL (1.0-4.8) Monocytes # (Auto) 0.6 x10^3/uL (0.0-1.1) Eosinophils # (Auto) 0.3 x10^3/uL (0.0-0.7) Basophils # (Auto) 0.1 x10^3/uL (0.0-0.2) POC Hemoglobin 11.9 g/dL (14-18) L POC Hematocrit 35 % (37-52) L POC Sodium 140 mmol/L (135-145) POC Potassium 3.1 mmol/L (3.5-5.0) L POC Chloride 100 mmol/L (98-110) POC Total CO2 27 mmol/L (23-32) Anion Gap 18 mmol/L (6-14) H POC Blood Urea Nitrogen 13 mg/dL (8-26) POC Creatinine 1.2 mg/dL (0.5-1.4) Glucose Level 123 mg/dL (70-99) H POC Ionized Calcium (Marie) 1.13 mmol/L (1.13-1.32) Laboratory Tests 07/09/17 14:30 Laboratory Tests 07/09/17 14:49 EKG EKG [] Radiology/Procedures Radiology/Procedures PQRS Compliance Statement: One or more of the following individualized dose reduction techniques were utilized for this examination: 1. Automated exposure control 2. Adjustment of the mA and/or kV according to patient size 3. Use of iterative reconstruction technique CT ABD PELV W/ IV CONTRST ONLY Clinical Indication: RT GROIN PAIN, Comparison: CT abdomen and pelvis with contrast, March 21, 2013. Technique: Helical CT imaging of the abdomen and pelvis is performed after 75 cc Omnipaque 300 IV contrast. Oral contrast not given. Findings: There is moderate atelectasis or scarring in the bilateral basilar lower lobes. There is a 3 mm nodule in the right lung, image 5. There is coronary artery disease. Cardiac size normal. There is fatty infiltration of the liver. Gallbladder, spleen, pancreas, adrenal glands, and abdominal aorta caliber are normal. Small cortical cyst in each kidney. No hydronephrosis. Evaluation of bowel may be limited without oral contrast. Stomach unremarkable. No dilated small bowel. A noninflamed epiploic appendage is seen along the distal descending colon, coronal image 17. Descending colon is decompressed, limiting evaluation. There is stool in the ascending and transverse colon. No colon wall thickening. Appendix not seen, no secondary signs of appendicitis. Urinary bladder is not well distended. Prostate size normal. Fat-containing right inguinal hernia, moderate size. No acute bone abnormality. IMPRESSION: 1. No acute abdominal or pelvic abnormality. 2. Moderate atelectasis or scarring in the bilateral lower lobes. 3. There is a 3 mm nodule in the right lung. If patient is high risk for lung malignancy consider noncontrast CT chest follow-up in 12 months according to Fleischner Society guidelines. 4. Fatty infiltration of the liver. 5. Fat-containing right inguinal hernia. Electronically signed by: Malcolm Barrera MD (07/09/2017 4:12 PM) [id number] DICTATED and SIGNED BY: MALCOLM BARRERA MD DATE: 07/09/17 1602 Course & Med Decision Making Course & Med Decision Making Patient has inguinal hernia on exam with no concerning signs or symptoms for obstruction or incarceration or string angulation at this time. We will check Labs CT and likely discharged with tramadol and surgical consultation. concerning signs or symptoms as far as acute pathology found on CT. Patient told about his incidental findings of the need for follow-up especially for the pulmonary nodule. Shouldn't will be discharged in stable condition with surgery follow-up and told to come back to the ED sooner with worsening pain fevers vomiting or other general concerns. Patient aware and agreeable with plan and verbalized understanding of the above instructions. Dragon Disclaimer Dragon Disclaimer This electronic medical record was generated, in whole or in part, using a voice recognition dictation system. Departure Departure Impression: Primary Impression: Abdominal pain Additional Impression: Inguinal hernia Disposition: 01 HOME, SELF-CARE Condition: STABLE Referrals: LINA ARCHULETA MD (PCP) Patient Instructions: Inguinal Hernia, Adult Scripts Tramadol Hcl (TRAMADOL HCL) 50 Mg Tablet 1 TAB PO PRN Q6HRS, #30 TAB Prov: LEFTY BOWERS DO 07/09/17 Problem Qualifiers Primary Impression: Abdominal pain Abdominal location: right lower quadrant Qualified Codes: R10.31 - Right lower quadrant pain LEFTY BOWERS DO Jul 09, 2017 16:08
--- NOTE | 2017-07-09 16:14 | RAD ---
PQRS Compliance Statement: One or more of the following individualized dose reduction techniques were utilized for this examination: 1. Automated exposure control 2. Adjustment of the mA and/or kV according to patient size 3. Use of iterative reconstruction technique CT ABD PELV W/ IV CONTRST ONLY Clinical Indication: RT GROIN PAIN, Comparison: CT abdomen and pelvis with contrast, March 21, 2013. Technique: Helical CT imaging of the abdomen and pelvis is performed after 75 cc Omnipaque 300 IV contrast. Oral contrast not given. Findings: There is moderate atelectasis or scarring in the bilateral basilar lower lobes. There is a 3 mm nodule in the right lung, image 5. There is coronary artery disease. Cardiac size normal. There is fatty infiltration of the liver. Gallbladder, spleen, pancreas, adrenal glands, and abdominal aorta caliber are normal. Small cortical cyst in each kidney. No hydronephrosis. Evaluation of bowel may be limited without oral contrast. Stomach unremarkable. No dilated small bowel. A noninflamed epiploic appendage is seen along the distal descending colon, coronal image 17. Descending colon is decompressed, limiting evaluation. There is stool in the ascending and transverse colon. No colon wall thickening. Appendix not seen, no secondary signs of appendicitis. Urinary bladder is not well distended. Prostate size normal. Fat-containing right inguinal hernia, moderate size. No acute bone abnormality. IMPRESSION: 1. No acute abdominal or pelvic abnormality. 2. Moderate atelectasis or scarring in the bilateral lower lobes. 3. There is a 3 mm nodule in the right lung. If patient is high risk for lung malignancy consider noncontrast CT chest follow-up in 12 months according to Fleischner Society guidelines. 4. Fatty infiltration of the liver. 5. Fat-containing right inguinal hernia. Electronically signed by: Malcolm Carranza MD (07/09/2017 4:12 PM) [id number]
== END 2017-07-09 16:31 | disposition home or self-care (01) ==
LOC: ER 14:10
DX: K40.90 Unilateral inguinal hernia, without obstruction or gangrene, not specified as recurrent (principal); F31.9 Bipolar disorder, unspecified; J44.9 Chronic obstructive pulmonary disease, unspecified; I10 Essential (primary) hypertension; Z88.0 Allergy status to penicillin
CPT/HCPCS: 36415; 74177; 80047; 85025; 99285; Q9967

== ENCOUNTER 2017-10-01 20:03 | Emergency (ER) | payer OTHER | END 2017-10-01 21:34 | disposition home or self-care (01) | LOC: ER 20:03 | DX: I10 Essential (primary) hypertension (principal); J44.9 Chronic obstructive pulmonary disease, unspecified; F31.9 Bipolar disorder, unspecified; Z88.0 Allergy status to penicillin | CPT/HCPCS: 93005; 99283-25 ==

== ENCOUNTER 2018-11-22 12:15 | Emergency (ER) | payer OTHER ==
[~2018-11-22] VITALS: Ht 185.4 cm; Wt 95.3 kg
[~2018-11-22 12:15] MED LIST changes: +ALBU2.5V8 INH; -AMLO10TA2 PO; +AMLO10TA8 PO; -CITA20TA5 PO; +CITA20TA6 PO; -GABA-586 PO; +GABA300C18 PO; +HYDR12.58 PO; +NAPR-514 PO; -NAPR500T4 PO; +OMEP20CA10 PO; -OMEP20CA9 PO; +RAME8TAB19 PO; +ZOLP10TA4 PO
[2018-11-22 12:31] VITALS: BP 145/109
[2018-11-22] MEDS ORDERED: NAPROXEN 500 MG TABLET PO STA (12:37)
[2018-11-22] MEDS ORDERED: METH4TAB2 PO (12:52)
[2018-11-22] MEDS ORDERED: TRAM50TA PO (12:52)
[2018-11-22] MEDS ORDERED: METH-37 PO (12:52)
--- NOTE | 2018-11-22 12:53 | PHYS DOC ---
Past Medical History Past Medical History: Bipolar, COPD, Depression, Hypertension Additional Past Medical Histor: BOARDERLINE PERSONALTIY DISORDER, SHOULDER PAIN ,CHRONIC BACK PAIN Past Surgical History: Other Additional Past Surgical Histo: HERNIA SX Alcohol Use: Occasionally Drug Use: Other Adult General Chief Complaint Chief Complaint: BACK PAIN OR INJURY HPI HPI Patient is a 62 year old male with history of hypertension, COPD, bipolar, who presents to the ED today complaining of 6 out of 10 chronic low back pain that got worse last night. Patient denies any known injury. Patient states the pain radiates to the left lower extremity. Denies any loss of bowel bladder function. Denies any numbness or tingling to bilateral lower extremities. Patient states he has been trying heat with no relief. Review of Systems Review of Systems Constitutional: Denies fever or chills [] GI: Denies abdominal pain, nausea, vomiting, bloody stools or diarrhea [] : Denies dysuria or hematuria [] Musculoskeletal: Reports low back pain, no known injury. Integument: Denies rash or skin lesions [] Neurologic: Denies headache, focal weakness or sensory changes [] All other systems were reviewed and found to be within normal limits, except as documented in this note. Current Medications Current Medications Current Medications Medications (Trade) Dose Ordered Sig/David Start Time Stop Time Status Last Admin Dose Admin Acetaminophen/ Hydrocodone Bitart (Lortab 5/325) 2 tab 1X ONCE 11/22/18 13:00 11/22/18 13:01 Cyclobenzaprine HCl (Flexeril) 10 mg 1X ONCE 11/22/18 13:00 11/22/18 13:01 Naproxen (Naprosyn) 500 mg 1X STAT 11/22/18 12:37 11/22/18 12:42 DC Prednisone (Prednisone) 50 mg 1X ONCE 11/22/18 13:00 11/22/18 13:01 Allergies Allergies Allergies Coded Allergies Type Severity Reaction Last Updated Verified Penicillins Allergy Unknown 10/01/17 Yes Physical Exam Physical Exam Constitutional: Well developed, well nourished, no acute distress, non-toxic appearance. [] Abdomen: Bowel sounds normal, soft, no tenderness, no masses, no pulsatile masses. [] Skin: Warm, dry, no erythema, no rash. [] Back: Diffuse paraspinal muscle tenderness to bilateral lumbar spine, no midline lumbar spine tenderness, no CVA tenderness. Positive straight leg raise to the left, negative straight leg raise to the right. Heat pack noted on the low back Extremities: No tenderness, no cyanosis, no clubbing, ROM intact, no edema. [] Neurologic: Alert and oriented X 3, normal motor function, normal sensory function, no focal deficits noted. [] Psychologic: Affect normal, judgement normal, mood normal. [] Current Patient Data Vital Signs Vital Signs Date Time Temp Pulse Resp B/P (MAP) Pulse Ox O2 Delivery O2 Flow Rate FiO2 11/22/18 12:31 98.6 86 18 145/109 (121) 95 Room Air 98.6 EKG EKG [] Radiology/Procedures Radiology/Procedures [] Course & Med Decision Making Course & Med Decision Making Pertinent Labs and Imaging studies reviewed. (See chart for details) This is a 62-year-old male patient presenting to the ED today with exacerbation of chronic low back pain. No known injury. Pain relief provided in the ED. Follow-up with his own PCP in one week [place] Disclaimer Dragon Disclaimer This electronic medical record was generated, in whole or in part, using a voice recognition dictation system. Departure Departure Impression: Primary Impression: Low back pain Disposition: 01 HOME, SELF-CARE Condition: STABLE Referrals: Teresa BONILLA MD (PCP) Follow-up in 1-2 weeks Patient Instructions: Back Pain, Adult, [id number] Additional Instructions: You were evaluated in the medication for chronic low back pain. Take the prescribed medications as ordered. Continue applying heat packs to your back. Follow-up with your doctor in the course of next week. Scripts Methocarbamol (ROBAXIN) 500 Mg Tablet 1 TAB PO TID, #30 TAB Prov: MUTUNGA,[employer] 11/22/18 Tramadol Hcl (TRAMADOL HCL) 50 Mg Tablet 50 MG PO Q6HRS PRN for PAIN, #30 TAB Prov: MUTUNGA,[employer] 11/22/18 Methylprednisolone (MEDROL) 4 Mg Tab.ds.pk 1 PKG PO UD, #1 PKG Prov: MUTUNGA,[employer] 11/22/18 Problem Qualifiers Primary Impression: Low back pain Chronicity: chronic Back pain laterality: bilateral Sciatica presence: with sciatica Sciatica laterality: sciatica of left side Qualified Codes: M54.42 - Lumbago with sciatica, left side; G89.29 - Other chronic pain [employer] Nov 22, 2018 12:53
[2018-11-22] MEDS ORDERED: HYDROcodone/APAP 5/325MG 1 TAB TABLET PO ONE (13:00)
[2018-11-22] MEDS ORDERED: predniSONE 10 MG TABLET PO ONE (13:00)
[2018-11-22] MEDS ORDERED: CYCLOBENZAPRINE 10 MG TABLET. PO ONE (13:00)
== END 2018-11-22 13:07 | disposition home or self-care (01) ==
LOC: ER 12:15
DX: G89.29 Other chronic pain (principal); M54.42 Lumbago with sciatica, left side; I10 Essential (primary) hypertension; F31.9 Bipolar disorder, unspecified; J44.9 Chronic obstructive pulmonary disease, unspecified; Z88.0 Allergy status to penicillin
CPT/HCPCS: 99284; J7512

== ENCOUNTER → 2019-10-01 | Outpatient (CLI) | payer MEDICAID ==
[~2019-10-01] MED LIST changes: +FLUO20CA20 PO; -FLUO20CA8 PO; -MELA3TAB2 PO; +MELA3TAB56 PO; +METH-37 PO; +METH4TAB2 PO; -OMEP20CA10 PO; +OMEP20CA16 PO
--- NOTE | 2019-10-01 16:12 | RAD ---
LUMBAR SPINE MIN 4V History: Acute midline low back pain Comparison: None. Findings: 5 views of the lumbar spine are submitted. There is posterolateral fusion hardware with bilateral pedicle screws at L3, L2, T12, and T11 and on the right at L1. Screws are attached to intact vertical rods, also horizontal bar at the L1 level. Hardware is intact. There is superior L1 vertebral body fracture, likely mild osseous retropulsion superiorly. There is [id number] degenerative disc disease L3-4 through L5-S1. There is scattered atherosclerotic calcification of the abdominal aorta. Impression: 1. There is intact posterolateral fusion hardware T11-L3. There is L1 vertebral body fracture with minimal osseous retropulsion superiorly. 2. There is degenerative disc disease of inferior lumbar levels. Electronically signed by: Omega Luque MD (10/01/2019 4:10 PM) [id number]
== END | disposition home or self-care (01) ==
LOC: RAD 14:18
PROVIDERS: ATTEND Family Medicine
DX: S32.019A Unspecified fracture of first lumbar vertebra, initial encounter for closed fracture (principal); M51.37 Other intervertebral disc degeneration, lumbosacral region; I70.0 Atherosclerosis of aorta; Z98.1 Arthrodesis status; X58.XXXA Exposure to other specified factors, initial encounter; Y93.89 Activity, other specified; Y92.89 Other specified places as the place of occurrence of the external cause; Y99.8 Other external cause status
CPT/HCPCS: 72110

== ENCOUNTER → 2019-10-19 | Outpatient (CLI) | payer MEDICAID ==
[~2019-10-19] MED LIST changes: +MELA3TAB4 PO; -MELA3TAB56 PO
--- NOTE | 2019-10-19 11:17 | RAD ---
MRI Lumbar Spine without contrast History: Chronic pain, possible L1 fracture Technique: Multiplanar, multi sequential noncontrast MR imaging was performed of the lumbar spine. Comparison: Lumbar spine radiographs October 01, 2019, no other previous relevant exam Findings: As seen on radiographs, there is posterolateral fusion hardware with bilateral pedicle screws at L3, L2, T12, and T11 and on the right at L1. There is L1 compression fracture more eccentric to the left primarily involving the central and superior vertebral body, mild osseous retropulsion superiorly. There is associated marrow edema signified by STIR hyperintense and T1 hypointense signal. There is negligible anterior spondylolisthesis L5-S1, L2-3, and T12-L1. Conus terminates near L1. There is mild to moderate narrowing of the L3-4 through L5-S1 intervertebral disc spaces although likely in part on developmental basis, also mild L2-3 degenerative disc disease. There is very mild dextroscoliosis of the lumbar spine. 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 There is T2 hyperintense lesion of the visualized left kidney about 2 cm, statistically more likely a cyst. T12-L1: Neural foramina and spinal canal are adequate. L1-L2: Neural foramina and spinal canal are adequate. There has been posterior decompression. L2-L3: There is very minimal disc osteophyte complex. Spinal canal and neural foramina are adequate. There is mild facet hypertrophic change. L3-L4: There is mild facet degenerative change. Spinal canal and neural foramina are overall adequate. L4-L5: Spinal canal and neural foramina are adequate. There is minimal buckling of the ligamentum flavum. L5-S1: Spinal canal and neural foramina are adequate. There is mild facet degenerative change greater on the right. Impression: 1. There is recent L1 compression fracture with associated marrow edema, minimal osseous retropulsion superiorly without spinal stenosis. 2. There is again multilevel posterolateral fusion hardware T11-L3. 3. There is likely cyst of the left kidney. Electronically signed by: Omega Luque MD (10/19/2019 11:14 AM) [id number]
== END ==
LOC: MRI 10:06
PROVIDERS: ATTEND Family Medicine
DX: M48.56XS Collapsed vertebra, not elsewhere classified, lumbar region, sequela of fracture (principal); M25.78 Osteophyte, vertebrae; R60.9 Edema, unspecified; M43.25 Fusion of spine, thoracolumbar region
CPT/HCPCS: 72148